=== PATIENT | female | born 1995 | race African-American/Black ===

== ENCOUNTER 2016-09-25 21:58 | Emergency (ER) | payer OTHER ==
[2016-09-25 22:19] VITALS: BP 102/86; PULSE 70; TEMP 98.1; BMI 40.3
[2016-09-25] MEDS ORDERED: SODIUM CHLORIDE 0.9% 500 ML INFUS.BAG IV ONE (23:19)
[2016-09-26 00:01] LABS: BASOPHIL 0.8 % (0-2.0); MCH 23.4 pg (25.7-33.7); MCHC 30.8 g/dl (32.0-36.0); MEAN CELL VOLUME 76.1 fl (80-96); NEUTROPHILS 58.7 % (42.8-82.8); PLATELET COUNT 329 K/MM3 (134-434); RDW 15.6 % (11.6-15.6); WHITE BLOOD COUNT 7.6 K/mm3 (4.0-10.0)
--- NOTE | 2016-09-26 00:07 | PDOC ---
History of Present Illness - General History Source: Patient Exam Limitations: No Limitations - History of Present Illness Initial Comments: 09/26/16 00:08 The patient is a 21 year old obese female with a significant past medical history of asthma, IUD in place, who presents to the ED with complaints of chest pain and dizziness since earlier today. The patient reports a sudden onset of dizziness and chest pain earlier today. The patient reports chest pain worsened with deep inspiration. She reports blurry vision secondary to dizziness that has now subsided. The patient also reports urinary frequency and slight nasal congestion. Patient reports eating a burger and fries earlier today. Denies dysuria or hesitancy. Denies nausea, vomiting, or diarrhea. Denies shortness of breath or cough. Denies any other symptoms. 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 The patient smokes marijuana. Family hx: Diabetes runs in the patients family. Allergies: Seafood. <Dereje Mcdaniels - Last Filed: 09/26/16 00:08> <Anita El - Last Filed: 09/26/16 21:00> - General Chief Complaint: Lightheaded Stated Complaint: dizziness Time Seen by Provider: 09/25/16 23:07 Past History <Dereje Mcdaniels - Last Filed: 09/26/16 00:08> - Past Medical History Asthma: Yes (as child-no meds) Cancer: No Cardiac Disorders: No Diabetes: Yes (untreated) HTN: No Seizures: No Thyroid Disease: No - Psycho/Social/Smoking Cessation Hx Anxiety: No Suicidal Ideation: No Smoking Status: No Smoking History: Never smoked Have you smoked in the past 12 months: No Number of Cigarettes Smoked Daily: 0 Information on smoking cessation initiated: No Hx Alcohol Use: No Drug/Substance Use Hx: No Substance Use Type: None Hx Substance Use Treatment: No <Anita El - Last Filed: 09/26/16 21:00> - Past Medical History Allergies/Adverse Reactions: Allergies Allergy/AdvReac Type Severity Reaction Status Date / Time shellfish derived Allergy Verified 09/25/16 22:19 seafood Allergy Intermediate Itching Uncoded 09/25/16 22:19 Home Medications: Ambulatory Orders Nitrofurantoin Monohyd/M-Cryst [Macrobid -] 100 mg PO BID #6 capsule 09/26/16 Review of Systems - Review of Systems Able to Perform ROS?: Yes Comments:: 09/26/16 00:08 CONSTITUTIONAL: Absent: fever, chills, diaphoresis, generalized weakness, malaise, loss of appetite HEENT: + blurry vision, nasal congestion Absent: rhinorrhea, throat pain, throat swelling, difficulty swallowing, mouth swelling, ear pain, eye pain CARDIOVASCULAR: + chest pain Absent: syncope, palpitations, irregular heart rate, lightheadedness, peripheral edema RESPIRATORY: Absent: cough, shortness of breath, dyspnea with exertion, orthopnea, wheezing, stridor, hemoptysis GASTROINTESTINAL: Absent: abdominal pain, abdominal distension, nausea, vomiting, diarrhea, constipation, melena, hematochezia GENITOURINARY: Absent: dysuria, frequency, urgency, hesitancy, hematuria, flank pain, genital pain MUSCULOSKELETAL: Absent: myalgia, arthralgia, joint swelling SKIN: Absent: rash, itching, pallor HEMATOLOGIC/IMMUNOLOGIC: Absent: easy bleeding, easy bruising, lymphadenopathy, frequent infections ENDOCRINE: Absent: unexplained weight gain, unexplained weight loss, heat intolerance, cold intolerance NEUROLOGIC: + dizziness Absent: headache, focal weakness or paresthesias,, unsteady gait, seizure, mental status changes, bladder or bowel incontinence PSYCHIATRIC: Absent: anxiety, depression, suicidal or homicidal ideation, hallucinations. All Other Systems: Reviewed and Negative <Dereje Mcdaniels - Last Filed: 09/26/16 00:08> *Physical Exam - Vital Signs Last Vital Signs Temp Pulse Resp BP Pulse Ox 98.1 F 70 18 102/86 100 09/25/16 22:16 09/25/16 22:16 09/25/16 22:16 09/25/16 22:16 09/25/16 22:16 - Physical Exam Comments: 09/26/16 00:09 GENERAL: + obese Awake and alert. No acute distress. HEENT: Normocephalic, atraumatic. PERRLA, EOMI. No conjunctival pallor. Sclera are non- icteric. Moist mucous membranes. Oropharynx is clear. NECK: Supple. Full ROM. No JVD. Carotid pulses 2+ and symmetric, without bruits. No thyromegaly. NCo lymphadenopathy. CARDIOVASCULAR: Regular rate and rhythm. No murmurs, rubs, or gallops. Distal pulses are 2+ and symmetric. PULMONARY: No evidence of respiratory distress. Lungs clear to auscultation bilaterally. No wheezing, rales or rhonchi. ABDOMINAL: Soft. Non-tender. Non-distended. No rebound or guarding. No organomegaly. Normoactive bowel sounds. MUSCULOSKELETAL Normal range of motion at all joints. No bony deformities or tenderness. No CVA tenderness. EXTREMITIES: No cyanosis. No clubbing. No edema. No calf tenderness. SKIN: Warm and dry. Normal capillary refill. No rashes. No jaundice. NEUROLOGICAL: Alert, awake, appropriate. Cranial nerves 2-12 intact. No deficits to light touch and temperature in face, upper extremities and lower extremities. No motor deficits in the in face, upper extremities and lower extremities. Normoreflexic in the upper and lower extremities. Normal speech. Toes are down- going bilaterally. Gait is normal without ataxia. PSYCHIATRIC: Cooperative. Good eye contact. Appropriate mood and affect. <Dereje Mcdaniels - Last Filed: 09/26/16 00:08> - Vital Signs Last Vital Signs Temp Pulse Resp BP Pulse Ox 98.1 F 70 18 102/86 100 09/25/16 22:16 09/25/16 22:16 09/25/16 22:16 09/25/16 22:16 09/25/16 22:16 <Anita El - Last Filed: 09/26/16 21:00> ED Treatment Course - LABORATORY CBC & Chemistry Diagram: 09/25/16 23:46 09/25/16 23:46 - ADDITIONAL ORDERS Additional order review: Laboratory Results 09/25/16 23:25 POC Glucometer [id number] 09/25/16 09/25/16 23:46 23:25 RBC 5.46 H D MCV 76.1 L MCHC 30.8 L RDW 15.6 MPV 8.0 Neutrophils % 58.7 Lymphocytes % 28.6 D Monocytes % 8.9 Eosinophils % 3.0 Basophils % 0.8 POC Glucometer [id number] - Medications Given in the ED: ED Medications Discontinued Medications Generic Name Dose Route Start Last Admin Trade Name Freq PRN Reason Stop Dose Admin Sodium Chloride 1,000 ml 09/25/16 23:19 09/25/16 23:50 Normal Saline - IV 09/25/16 23:20 1,000 ml ONCE ONE Administration <Dereje Mcdaniels - Last Filed: 09/26/16 00:08> - LABORATORY CBC & Chemistry Diagram: 09/25/16 23:46 09/25/16 23:46 - ADDITIONAL ORDERS Additional order review: Laboratory Results 09/25/16 23:25 POC Glucometer [id number] 09/25/16 09/25/16 23:46 23:25 RBC 5.46 H D MCV 76.1 L MCHC 30.8 L RDW 15.6 MPV 8.0 Neutrophils % 58.7 Lymphocytes % 28.6 D Monocytes % 8.9 Eosinophils % 3.0 Basophils % 0.8 POC Glucometer [id number] - Medications Given in the ED: ED Medications Discontinued Medications Generic Name Dose Route Start Last Admin Trade Name Freq PRN Reason Stop Dose Admin Sodium Chloride 1,000 ml 09/25/16 23:19 09/25/16 23:50 Normal Saline - IV 09/25/16 23:20 1,000 ml ONCE ONE Administration <Anita El - Last Filed: 09/26/16 21:00> Medical Decision Making - Medical Decision Making 09/26/16 20:58 Pt comes with dizziness; no CP at present and no SOB. She is obese and she and her mom are worried that she is diabetic, as DM runs in the family. Pt has normal labs and normal UA, some leukocytes. I will teat her for a UTI. She was hydrated in the ER and she is feeling better. Pt is afebrile and other than her obesity, her exam is normal. She will be asked to follow with her PMD. <Anita El - Last Filed: 09/26/16 21:00> *DC/Admit/Observation/Transfer - Attestations Scribe Attestion: 09/26/16 00:09 Documentation prepared by Dereje Mcdaniels, acting as vice president medical affairs for Anita El MD <Dereje Mcdaniels - Last Filed: 09/26/16 00:08> - Discharge Dispostion Admit: No <Anita El - Last Filed: 09/26/16 21:00> Diagnosis at time of Disposition: UTI (urinary tract infection) - Discharge Dispostion Disposition: HOME Condition at time of disposition: Stable - Prescriptions Prescriptions: Nitrofurantoin Monohyd/M-Cryst [Macrobid -] 100 mg PO BID #6 capsule - Referrals Referrals: Suha Jj MD [Primary Care Provider] - - Patient Instructions Printed Discharge Instructions: Urinary Tract Infection - Post Discharge Activity Work/School Note: Back to Work
[2016-09-26 00:11] LABS: URINE APPEARANCE SLCLOUDY; URINE BILIRUBIN NEGATIVE (NEGATIVE); URINE BLOOD NEGATIVE (NEGATIVE); URINE COLOR LTYELLOW; URINE GLUCOSE (UA) NEGATIVE (NEGATIVE); URINE KETONE NEGATIVE (NEGATIVE); URINE LEUK ESTERASE 2+ (NEGATIVE); URINE NITRITE NEGATIVE (NEGATIVE); URINE PROTEIN NEGATIVE (NEGATIVE); URINE UROBILINOGEN NEGATIVE E.U./dl (0.2-1.0)
[2016-09-26 00:13] LABS: URINE BACTERIA RARE /hpf (NONE SEEN); URINE MUCUS RARE; URINE RBC 2 /hpf (0-3); URINE WBC 33 /hpf (3-5)
[2016-09-26 00:28] LABS: ALBUMIN 3.6 g/dl (3.4-5.0); ANION GAP 9 (8-16); CALCIUM 9.3 mg/dL (8.5-10.1); CO2 26 mmol/L (21-32); GLUCOSE,RANDOM 84 mg/dL (74-106)
[2016-09-26 00:35] LABS: ALK PHOS 96 U/L (45-117); BILIRUBIN,TOTAL 0.5 mg/dL (0.2-1.0); CREATININE 0.9 mg/dL (0.55-1.02); SGOT/AST 25 U/L (15-37); SGPT/ALT 33 U/L (12-78); TROPONIN I < 0.02 ng/ml (0.00-0.05)
[2016-09-26 00:39] LABS: ACETONE SERUM NEGATIVE (NEGATIVE)
[2016-09-26] MEDS ORDERED: NITROFURANTOIN MACROCRYSTAL 50 MG CAPSULE (FP) PO SCH (01:00)
[2016-09-26] MEDS ORDERED: NITROFURANTOIN MACROCRYSTAL 50 MG CAPSULE (FP) ONE (01:13)
== END 2016-09-26 01:20 | disposition home or self-care (01) ==
LOC: JER 21:58
DX: N39.0 Urinary tract infection, site not specified (principal); Z97.5 Presence of (intrauterine) contraceptive device; E11.9 Type 2 diabetes mellitus without complications; E66.9 Obesity, unspecified; Z68.41 Body mass index [BMI] 40.0-44.9, adult; J45.909 Unspecified asthma, uncomplicated
CPT/HCPCS: 36415; 80053; 81003; 81015; 82009; 82550; 82553; 84484; 84703; 85025; 99281-25

== ENCOUNTER 2023-08-05 00:43 | Emergency (ER) | payer OTHER ==
[2023-08-05 00:57] VITALS: BP 123/79; PULSE 89; RESP 18; TEMP 97.6; BMI 48.4
== END 2023-08-05 03:12 | disposition home or self-care (01) ==
LOC: JER 00:43
DX: O99.891 Other specified diseases and conditions complicating pregnancy (principal); M79.662 Pain in left lower leg; Z3A.08 8 weeks gestation of pregnancy
CPT/HCPCS: 93971-TC; 99284-25